=== PATIENT | male | born 1965 | race Caucasian/White ===

== ENCOUNTER 2016-08-18 15:39 | Inpatient (IN) | payer OTHER ==
[~2016-08-18] VITALS: Ht 172.7 cm; Wt 70.8 kg
[2016-08-18 15:40] VITALS: BP 143/80; PULSE 120; RESP 22; TEMP 101; O2SAT 96
[2016-08-18] MEDS ORDERED: PIPERACILLIN/TAZOBACTAM 3.375 GM/VIAL (ZOSYN) IV ONE ×2 (15:58→22:59)
[2016-08-18] MEDS ORDERED: MORPHINE 4 MG/ML INJ. SYRINGE IVP ONE (16:00)
[2016-08-18] MEDS ORDERED: PIPERACILLIN/TAZO 3.38 GM in NS 50 ML IV ONE (16:00)
[2016-08-18] MEDS ORDERED: ACETAMINOPHEN 500 MG TABLET PO ONE (16:00)
[2016-08-18] MEDS ORDERED: DIPHENHYDRAMINE INJ 50 MG/ML VIAL IVP ONE (16:00)
[2016-08-18] MEDS ORDERED: ONDANSETRON HCL 4 MG/2 ML VIAL IVP ONE (16:00)
[2016-08-18] MEDS ORDERED: NACL 0.9% 1,000 ML IV ONE (16:00)
[2016-08-18 16:13] LABS: INR 1.2 (0.80-1.20)
[2016-08-18 16:14] LABS: CALCIUM 8.4 mg/dL (8.4-11.0); CREATININE 1.01 mg/dL (0.55-1.30); POTASSIUM 3.4 mmol/L (3.5-5.1)
[2016-08-18 16:15] LABS: HEMATOCRIT 42.4 % (36-54); HEMOGLOBIN 14.6 g/dL (14.0-18.0); MEAN CORPUSCULAR HEMOGLOBIN 32 pg (27-31); MEAN CORPUSCULAR HGB CONC 35 % (32-36); MEAN CORPUSCULAR VOLUME 91 fL (79.0-98.0); PLATELET COUNT (AUTO) 295 K/uL (130-430); RED BLOOD CELL COUNT(AUTO) 4.66 MIL/uL (4.2-6.2); WHITE BLOOD COUNT (AUTO) 14.5 K/uL (4.8-10.8)
[2016-08-18 16:18] LABS: ALBUMIN 2.1 g/dL (3.4-4.8); TOTAL BILIRUBIN 0.5 mg/dL (0.0-1.0); TOTAL PROTEIN, SERUM 6.8 g/dL (6.4-8.3)
[2016-08-18 16:27] LABS: BAND % (MANUAL) 13 % (0-6); BASOPHILS % (MANUAL) 0 % (0-2); EOSINOPHILS % (MANUAL) 0 % (0-7); LYMPHOCYTES % (MANUAL) 4 % (20-46); MONOCYTES % (MANUAL) 1 % (0-11)
[2016-08-18] MEDS ORDERED: ALBUTEROL SULFATE 0.083% 2.5 MG/3 ML VIAL.NEB INH ONE (16:30)
[2016-08-18] MEDS ORDERED: POTASSIUM CHLORIDE 40 MEQ in D5W 250 ML IV ONE (16:45)
[2016-08-18] MEDS ORDERED: POTASSIUM CHLORIDE 20 MEQ TAB.PRT.SR PO ONE (16:45)
[2016-08-18] MEDS ORDERED: AZITHROMYCIN 500 MG in NS 250 ML IV SCH (17:45)
[2016-08-18] MEDS ORDERED: LEVOFLOXACIN 500 MG/D5W 100 ML IV SCH ×3 (17:45→23:00)
[2016-08-18] MEDS ORDERED: NACL 0.9% 1,000 ML IV SCH ×3 (17:45→21:10)
[2016-08-18 18:16] VITALS: BP 102/64; PULSE 85; RESP 20; TEMP 97.8; O2SAT 96
[2016-08-18 20:00] VITALS: BP 106/71; PULSE 88; RESP 19; TEMP 98.9; O2SAT 97
[2016-08-18] MEDS ORDERED: IPRATROPIUM/ALBUTEROL SULFATE 3 ML AMPUL.NEB INH PRN (21:15)
[2016-08-18] MEDS ORDERED: ONDANSETRON HCL 4 MG/2 ML VIAL IVP PRN (21:15)
[2016-08-18] MEDS ORDERED: ACETAMINOPHEN 325 MG TABLET PO PRN (21:15)
[2016-08-18] MEDS ORDERED: IPRATROPIUM/ALBUTEROL SULFATE 3 ML AMPUL.NEB INH SCH ×2 (22:00→22:15)
[2016-08-18] MEDS ORDERED: LEVOFLOXACIN 500 MG/D5W 100 ML IV ONE (22:58)
[2016-08-18] MEDS: IPRATROPIUM/ALBUTEROL SULFATE 3 ML AMPUL.NEB INH SCH (23:00)
[2016-08-18 23:04] LABS: BILIRUBIN,URINE NEGATIVE (NEGATIVE); BLOOD, URINE 1+ (NEGATIVE); CLARITY/URINE CLEAR (CLEAR); COLOR,URINE YELLOW (YELLOW); GLUCOSE,URINE NEGATIVE (NEGATIVE); KETONES,URINE NEGATIVE (NEGATIVE); LEUKOCYTE ESTERASE ,URINE NEGATIVE (NEGATIVE); NITRITE, URINE NEGATIVE (NEGATIVE); PROTEIN URINE 1+ (NEGATIVE); UROBILINOGEN,URINE 0.2 (0.2-1.0)
[2016-08-18 23:09] LABS: CALCIUM 8.4 mg/dL (8.4-11.0); CREATININE 1.28 mg/dL (0.55-1.30); POTASSIUM 4.4 mmol/L (3.5-5.1)
[2016-08-18 23:19] LABS: BACTERIA,URINE MANY /HPF (None Seen); RBC,URINE 0-3 /HPF (0-3)
[2016-08-18 23:20] LABS: MUCUS,URINE None Seen /LPF (None Seen)
[2016-08-18] MEDS ORDERED: 0.45% NACL 1,000 ML IV SCH (23:30)
[2016-08-19] VITALS (8 sets, daily range): BP systolic 107–133; BP diastolic 56–78; PULSE 80–100; RESP 16–24; TEMP 98.1–101.2; O2SAT 91–95
[2016-08-19] MEDS ORDERED: COMMUNICATION ORDER XX ONE
[2016-08-19] MEDS ORDERED: AZITHROMYCIN 500 MG in NS 250 ML IV SCH ×2
[2016-08-19] MEDS: PIPERACILLIN/TAZO 3.375/DEX-IS 50 ML IV SCH ×5 (00:49→23:42)
[2016-08-19] MEDS: IPRATROPIUM/ALBUTEROL SULFATE 3 ML AMPUL.NEB INH SCH ×4 (03:00→23:42)
[2016-08-19] MEDS ORDERED: ACETYLCYSTEINE 10% 4 ML VIAL (RT) INH SCH (07:00)
[2016-08-19 07:49] LABS: BASOPHILS # (AUTO) 0.1 K/uL (0.0-0.2); BASOPHILS % (AUTO) 0.8 % (0.0-2.0); EOSINOPHILS % (AUTO) 0.1 % (0.0-4.0); HEMATOCRIT 38.6 % (36-54); HEMOGLOBIN 13.4 g/dL (14.0-18.0); LYMPHOCYTES # (AUTO) 0.5 K/uL (1.0-5.5); LYMPHOCYTES % (AUTO) 3.7 % (20.5-51.5); MEAN CORPUSCULAR HEMOGLOBIN 32 pg (27-31); MEAN CORPUSCULAR HGB CONC 35 % (32-36); MEAN CORPUSCULAR VOLUME 92 fL (79.0-98.0); MONOCYTES # (AUTO) 0.2 K/uL (0.0-1.0); MONOCYTES % (AUTO) 1.7 % (1.7-9.3); NEUTROPHILS # (AUTO) 11.8 K/uL (1.8-7.7); NEUTROPHILS % (AUTO) 93.7 % (40.0-70.0); PLATELET COUNT (AUTO) 317 K/uL (130-430); RED BLOOD CELL COUNT(AUTO) 4.21 MIL/uL (4.2-6.2); RED CELL DISTRIBUTION WIDTH 12.2 % (9.0-15.0); WHITE BLOOD COUNT (AUTO) 12.6 K/uL (4.8-10.8)
[2016-08-19 07:51] LABS: ALBUMIN 1.8 g/dL (3.4-4.8); CALCIUM 8.2 mg/dL (8.4-11.0); CREATININE 1.25 mg/dL (0.55-1.30); PHOSPHORUS 1.8 mg/dL (2.7-4.5); POTASSIUM 4.1 mmol/L (3.5-5.1); TOTAL BILIRUBIN 0.5 mg/dL (0.0-1.0); TOTAL PROTEIN, SERUM 6.4 g/dL (6.4-8.3)
[2016-08-19] MEDS ORDERED: LORazepam 2 MG/ML VIAL IM PRN (08:00)
[2016-08-19] MEDS ORDERED: IPRATROPIUM/ALBUTEROL SULFATE 3 ML AMPUL.NEB INH PRN (08:15)
[2016-08-19] MEDS ORDERED: ONDANSETRON HCL 4 MG/2 ML VIAL IVP PRN (08:15)
[2016-08-19] MEDS: ACETAMINOPHEN 325 MG TABLET PO PRN ×2 (08:49→17:16)
[2016-08-19] MEDS: ENOXAPARIN SODIUM 40 MG/0.4 ML SYRINGE SUBCUT SCH (08:49)
[2016-08-19] MEDS ORDERED: ENOXAPARIN SODIUM 40 MG/0.4 ML SYRINGE SUBCUT SCH (09:00)
[2016-08-19] MEDS: NICOTINE 7 MG/24 HR PATCH.TD24 TD SCH (09:00)
[2016-08-19] MEDS: LACTOBACILLUS RHAMNOSUS GG 1 CAP CAPSULE PO SCH ×2 (13:03→20:48)
[2016-08-19] MEDS: NACL 0.9% 1,000 ML IV SCH (16:04)
[2016-08-19] MEDS: ACETYLCYSTEINE 10% 4 ML VIAL (RT) INH SCH (16:22)
[2016-08-19] MEDS ORDERED: THIAMINE HCL 100 MG TABLET PO ONE (17:00)
[2016-08-19] MEDS ORDERED: FOLIC ACID 1 MG TABLET PO ONE (17:00)
[2016-08-19] MEDS ORDERED: MULTIVITAMINS TAB 1 TABLET PO ONE (17:00)
[2016-08-19] MEDS: THIAMINE HCL 100 MG TABLET PO SCH (17:06)
[2016-08-19] MEDS: LEVOFLOXACIN 500 MG/D5W 100 ML IV SCH (20:47)
[2016-08-20 01:12] VITALS: BP 120/69; PULSE 89; RESP 19; TEMP 97.9; O2SAT 100
[2016-08-20] MEDS: IPRATROPIUM/ALBUTEROL SULFATE 3 ML AMPUL.NEB INH SCH ×5 (03:00→23:00)
[2016-08-20 03:36] VITALS: BP 113/62; PULSE 91; RESP 18; TEMP 97.9; O2SAT 93
[2016-08-20] MEDS: NACL 0.9% 1,000 ML IV SCH ×3 (05:56→22:18)
[2016-08-20] MEDS: PIPERACILLIN/TAZO 3.375/DEX-IS 50 ML IV SCH ×3 (05:57→17:31)
[2016-08-20] MEDS ORDERED: COMMUNICATION ORDER XX ONE (07:30)
[2016-08-20 08:00] VITALS: BP 116/75; PULSE 86; RESP 20; TEMP 98.5; O2SAT 93
[2016-08-20 08:54] LABS: BASOPHILS # (AUTO) 0.2 K/uL (0.0-0.2); BASOPHILS % (AUTO) 1.5 % (0.0-2.0); EOSINOPHILS # (AUTO) 0.1 K/uL (0.0-0.4); EOSINOPHILS % (AUTO) 0.8 % (0.0-4.0); HEMATOCRIT 33.6 % (36-54); HEMOGLOBIN 11.6 g/dL (14.0-18.0); LYMPHOCYTES # (AUTO) 0.7 K/uL (1.0-5.5); LYMPHOCYTES % (AUTO) 5.5 % (20.5-51.5); MEAN CORPUSCULAR HEMOGLOBIN 31 pg (27-31); MEAN CORPUSCULAR HGB CONC 35 % (32-36); MEAN CORPUSCULAR VOLUME 91 fL (79.0-98.0); MONOCYTES # (AUTO) 0.4 K/uL (0.0-1.0); MONOCYTES % (AUTO) 2.9 % (1.7-9.3); NEUTROPHILS # (AUTO) 10.8 K/uL (1.8-7.7); NEUTROPHILS % (AUTO) 89.3 % (40.0-70.0); PLATELET COUNT (AUTO) 341 K/uL (130-430); RED BLOOD CELL COUNT(AUTO) 3.71 MIL/uL (4.2-6.2); RED CELL DISTRIBUTION WIDTH 12.3 % (9.0-15.0); WHITE BLOOD COUNT (AUTO) 12.2 K/uL (4.8-10.8)
[2016-08-20] MEDS: NICOTINE 7 MG/24 HR PATCH.TD24 TD SCH (09:00)
[2016-08-20 09:16] LABS: ALBUMIN 1.5 g/dL (3.4-4.8); CALCIUM 7.9 mg/dL (8.4-11.0); CREATININE 0.88 mg/dL (0.55-1.30); POTASSIUM 3.7 mmol/L (3.5-5.1); TOTAL BILIRUBIN 0.3 mg/dL (0.0-1.0); TOTAL PROTEIN, SERUM 5.4 g/dL (6.4-8.3)
[2016-08-20] MEDS: LACTOBACILLUS RHAMNOSUS GG 1 CAP CAPSULE PO SCH ×2 (09:18→22:17)
[2016-08-20] MEDS: ENOXAPARIN SODIUM 40 MG/0.4 ML SYRINGE SUBCUT SCH (09:18)
[2016-08-20] MEDS: FOLIC ACID 1 MG TABLET PO SCH (09:19)
[2016-08-20] MEDS: THIAMINE HCL 100 MG TABLET PO SCH (09:19)
[2016-08-20] MEDS: MULTIVITAMINS TAB 1 TABLET PO SCH (09:19)
[2016-08-20 12:19] VITALS: BP 116/63; PULSE 85; RESP 18; TEMP 98.1; O2SAT 95
[2016-08-20 16:31] VITALS: BP 120/66; PULSE 80; RESP 17; TEMP 99; O2SAT 94
[2016-08-20 19:36] VITALS: BP 119/70; PULSE 88; RESP 20; TEMP 97.2; O2SAT 92
[2016-08-20] MEDS: LEVOFLOXACIN 500 MG/D5W 100 ML IV SCH (22:18)
[2016-08-21] VITALS (7 sets, daily range): BP systolic 124–133; BP diastolic 71–79; PULSE 66–84; RESP 16–18; TEMP 97.7–98.7; O2SAT 92–95
[2016-08-21] MEDS: PIPERACILLIN/TAZO 3.375/DEX-IS 50 ML IV SCH ×5 (00:38→23:43)
[2016-08-21] MEDS: IPRATROPIUM/ALBUTEROL SULFATE 3 ML AMPUL.NEB INH SCH ×3 (03:00→20:13)
[2016-08-21 07:48] LABS: BASOPHILS # (AUTO) 0.1 K/uL (0.0-0.2); BASOPHILS % (AUTO) 0.6 % (0.0-2.0); EOSINOPHILS # (AUTO) 0.2 K/uL (0.0-0.4); EOSINOPHILS % (AUTO) 2.2 % (0.0-4.0); HEMATOCRIT 34.9 % (36-54); HEMOGLOBIN 11.8 g/dL (14.0-18.0); LYMPHOCYTES # (AUTO) 0.8 K/uL (1.0-5.5); LYMPHOCYTES % (AUTO) 6.8 % (20.5-51.5); MEAN CORPUSCULAR HEMOGLOBIN 31 pg (27-31); MEAN CORPUSCULAR HGB CONC 34 % (32-36); MEAN CORPUSCULAR VOLUME 92 fL (79.0-98.0); MONOCYTES # (AUTO) 0.6 K/uL (0.0-1.0); NEUTROPHILS # (AUTO) 9.5 K/uL (1.8-7.7); NEUTROPHILS % (AUTO) 85.4 % (40.0-70.0); PLATELET COUNT (AUTO) 352 K/uL (130-430); RED BLOOD CELL COUNT(AUTO) 3.79 MIL/uL (4.2-6.2); RED CELL DISTRIBUTION WIDTH 12.5 % (9.0-15.0); WHITE BLOOD COUNT (AUTO) 11.2 K/uL (4.8-10.8)
[2016-08-21 07:53] LABS: ALBUMIN 1.5 g/dL (3.4-4.8); CALCIUM 7.8 mg/dL (8.4-11.0); CREATININE 0.82 mg/dL (0.55-1.30); POTASSIUM 3.4 mmol/L (3.5-5.1); TOTAL BILIRUBIN 0.3 mg/dL (0.0-1.0); TOTAL PROTEIN, SERUM 5.4 g/dL (6.4-8.3)
[2016-08-21] MEDS: THIAMINE HCL 100 MG TABLET PO SCH (08:45)
[2016-08-21] MEDS: FOLIC ACID 1 MG TABLET PO SCH (08:45)
[2016-08-21] MEDS: MULTIVITAMINS TAB 1 TABLET PO SCH (08:45)
[2016-08-21] MEDS: LACTOBACILLUS RHAMNOSUS GG 1 CAP CAPSULE PO SCH ×2 (08:45→21:11)
[2016-08-21] MEDS: ENOXAPARIN SODIUM 40 MG/0.4 ML SYRINGE SUBCUT SCH (08:47)
[2016-08-21] MEDS: NICOTINE 7 MG/24 HR PATCH.TD24 TD SCH (08:48)
[2016-08-21] MEDS ORDERED: POTASSIUM CHLORIDE 20 MEQ TAB.PRT.SR PO ONE (09:45)
[2016-08-21] MEDS ORDERED: LOPERAMIDE HCL 2 MG CAPSULE PO ONE (09:45)
[2016-08-21] MEDS: NACL 0.9% 1,000 ML IV SCH (11:39)
[2016-08-21] MEDS: LEVOFLOXACIN 500 MG/D5W 100 ML IV SCH (20:32)
[2016-08-22] MEDS: NACL 0.9% 1,000 ML IV SCH ×4 (02:37→19:54)
[2016-08-22 04:45] VITALS: BP 128/77; PULSE 66; RESP 18; TEMP 98; O2SAT 95
[2016-08-22] MEDS: PIPERACILLIN/TAZO 3.375/DEX-IS 50 ML IV SCH ×3 (05:23→17:21)
[2016-08-22 06:59] LABS: HEMATOCRIT 35.1 % (36-54); HEMOGLOBIN 12.1 g/dL (14.0-18.0); MEAN CORPUSCULAR HEMOGLOBIN 32 pg (27-31); MEAN CORPUSCULAR HGB CONC 34 % (32-36); MEAN CORPUSCULAR VOLUME 93 fL (79.0-98.0); PLATELET COUNT (AUTO) 363 K/uL (130-430); RED BLOOD CELL COUNT(AUTO) 3.79 MIL/uL (4.2-6.2); RED CELL DISTRIBUTION WIDTH 12.4 % (9.0-15.0); WHITE BLOOD COUNT (AUTO) 11.8 K/uL (4.8-10.8)
[2016-08-22 07:18] LABS: ALBUMIN 1.5 g/dL (3.4-4.8); CALCIUM 7.8 mg/dL (8.4-11.0); CREATININE 0.74 mg/dL (0.55-1.30); POTASSIUM 3.8 mmol/L (3.5-5.1); TOTAL BILIRUBIN 0.5 mg/dL (0.0-1.0); TOTAL PROTEIN, SERUM 5.4 g/dL (6.4-8.3)
[2016-08-22] MEDS: IPRATROPIUM/ALBUTEROL SULFATE 3 ML AMPUL.NEB INH SCH ×3 (08:38→20:39)
[2016-08-22 08:40] VITALS: BP 128/77; PULSE 71
[2016-08-22] MEDS: NICOTINE 7 MG/24 HR PATCH.TD24 TD SCH (08:54)
[2016-08-22] MEDS: FOLIC ACID 1 MG TABLET PO SCH (08:54)
[2016-08-22] MEDS: MULTIVITAMINS TAB 1 TABLET PO SCH (08:54)
[2016-08-22] MEDS: THIAMINE HCL 100 MG TABLET PO SCH (08:54)
[2016-08-22] MEDS: ENOXAPARIN SODIUM 40 MG/0.4 ML SYRINGE SUBCUT SCH (08:55)
[2016-08-22] MEDS: LACTOBACILLUS RHAMNOSUS GG 1 CAP CAPSULE PO SCH ×2 (08:55→21:46)
[2016-08-22 09:23] LABS: ATYPICAL LYMPHOCYTES % 0 % (0-0); BAND % (MANUAL) 3 % (0-6); BASOPHILS % (MANUAL) 0 % (0-2); EOSINOPHILS % (MANUAL) 3 % (0-7); LYMPHOCYTES % (MANUAL) 12 % (20-46); MONOCYTES % (MANUAL) 8 % (0-11)
[2016-08-22] MEDS ORDERED: HYDROCORTISONE ACETATE 1 SUPP (ANUSOL HC) RC ONE (10:30)
[2016-08-22] MEDS ORDERED: IOHEXOL 100 ML IV ONE (11:06)
[2016-08-22 11:31] VITALS: BP 133/76; PULSE 74; RESP 17; TEMP 98.9; O2SAT 91
[2016-08-22 15:38] VITALS: BP 134/74; PULSE 80; RESP 19; TEMP 98.4; O2SAT 91
[2016-08-22 19:50] VITALS: BP 140/72; PULSE 78; RESP 18; TEMP 98.8; O2SAT 91
[2016-08-22 20:00] VITALS: BP 140/72; PULSE 80; RESP 18; TEMP 97.8; O2SAT 91
[2016-08-22] MEDS: HYDROCORTISONE ACETATE 1 SUPP (ANUSOL HC) RC SCH (21:00)
[2016-08-22] MEDS: LEVOFLOXACIN 500 MG/D5W 100 ML IV SCH (21:43)
[2016-08-23] VITALS: BP 123/60; PULSE 88; RESP 17; TEMP 98.4; O2SAT 93
[2016-08-23] MEDS: PIPERACILLIN/TAZO 3.375/DEX-IS 50 ML IV SCH ×5 (00:31→23:18)
[2016-08-23 04:00] VITALS: BP 142/79; PULSE 71; RESP 17; TEMP 97.7; O2SAT 90
[2016-08-23 07:00] VITALS: BP 130/74; PULSE 79; RESP 18; TEMP 97.9; O2SAT 88
[2016-08-23] MEDS: IPRATROPIUM/ALBUTEROL SULFATE 3 ML AMPUL.NEB INH SCH ×2 (07:00→17:26)
[2016-08-23 08:16] LABS: BASOPHILS # (AUTO) 0.1 K/uL (0.0-0.2); BASOPHILS % (AUTO) 0.4 % (0.0-2.0); EOSINOPHILS # (AUTO) 0.3 K/uL (0.0-0.4); EOSINOPHILS % (AUTO) 2.5 % (0.0-4.0); HEMATOCRIT 35.8 % (36-54); HEMOGLOBIN 12.4 g/dL (14.0-18.0); LYMPHOCYTES % (AUTO) 7.7 % (20.5-51.5); MEAN CORPUSCULAR HEMOGLOBIN 32 pg (27-31); MEAN CORPUSCULAR HGB CONC 35 % (32-36); MEAN CORPUSCULAR VOLUME 91 fL (79.0-98.0); MONOCYTES # (AUTO) 1.2 K/uL (0.0-1.0); MONOCYTES % (AUTO) 8.6 % (1.7-9.3); NEUTROPHILS % (AUTO) 80.8 % (40.0-70.0); PLATELET COUNT (AUTO) 344 K/uL (130-430); RED BLOOD CELL COUNT(AUTO) 3.93 MIL/uL (4.2-6.2); RED CELL DISTRIBUTION WIDTH 11.9 % (9.0-15.0); WHITE BLOOD COUNT (AUTO) 13.6 K/uL (4.8-10.8)
[2016-08-23 08:54] LABS: ALBUMIN 1.7 g/dL (3.4-4.8); CALCIUM 7.8 mg/dL (8.4-11.0); CREATININE 0.8 mg/dL (0.55-1.30); POTASSIUM 3.6 mmol/L (3.5-5.1); TOTAL BILIRUBIN 0.5 mg/dL (0.0-1.0); TOTAL PROTEIN, SERUM 5.6 g/dL (6.4-8.3)
[2016-08-23] MEDS: HYDROCORTISONE ACETATE 1 SUPP (ANUSOL HC) RC SCH ×2 (09:00→21:00)
[2016-08-23] MEDS: NICOTINE 7 MG/24 HR PATCH.TD24 TD SCH (09:00)
[2016-08-23] MEDS: THIAMINE HCL 100 MG TABLET PO SCH (09:41)
[2016-08-23] MEDS: MULTIVITAMINS TAB 1 TABLET PO SCH (09:41)
[2016-08-23] MEDS: LACTOBACILLUS RHAMNOSUS GG 1 CAP CAPSULE PO SCH ×2 (09:41→21:12)
[2016-08-23] MEDS: ENOXAPARIN SODIUM 40 MG/0.4 ML SYRINGE SUBCUT SCH (09:41)
[2016-08-23] MEDS: FOLIC ACID 1 MG TABLET PO SCH (09:41)
[2016-08-23 12:00] VITALS: BP 140/79; PULSE 78; RESP 16; TEMP 97.2; O2SAT 97
[2016-08-23 16:44] VITALS: BP 139/80; PULSE 74; RESP 16; TEMP 97.8; O2SAT 97
[2016-08-23 20:22] VITALS: BP 112/68; PULSE 85; RESP 16; TEMP 99.8; O2SAT 92
[2016-08-23] MEDS: LEVOFLOXACIN 500 MG/D5W 100 ML IV SCH (21:15)
[2016-08-24 00:06] VITALS: BP 134/81; PULSE 78; RESP 20; TEMP 100.9; O2SAT 93
[2016-08-24] MEDS: NACL 0.9% 1,000 ML IV SCH ×3 (02:15→21:33)
[2016-08-24 04:02] VITALS: BP 142/85; PULSE 70; RESP 20; TEMP 99.2; O2SAT 93
[2016-08-24] MEDS: PIPERACILLIN/TAZO 3.375/DEX-IS 50 ML IV SCH ×4 (05:19→23:23)
[2016-08-24 07:20] LABS: BASOPHILS % (AUTO) 0.1 % (0.0-2.0); EOSINOPHILS # (AUTO) 0.3 K/uL (0.0-0.4); HEMATOCRIT 36.8 % (36-54); HEMOGLOBIN 12.8 g/dL (14.0-18.0); LYMPHOCYTES # (AUTO) 1.4 K/uL (1.0-5.5); LYMPHOCYTES % (AUTO) 12.5 % (20.5-51.5); MEAN CORPUSCULAR HEMOGLOBIN 32 pg (27-31); MEAN CORPUSCULAR HGB CONC 35 % (32-36); MEAN CORPUSCULAR VOLUME 92 fL (79.0-98.0); MONOCYTES # (AUTO) 0.8 K/uL (0.0-1.0); MONOCYTES % (AUTO) 6.7 % (1.7-9.3); NEUTROPHILS % (AUTO) 77.7 % (40.0-70.0); PLATELET COUNT (AUTO) 388 K/uL (130-430); RED BLOOD CELL COUNT(AUTO) 3.99 MIL/uL (4.2-6.2); RED CELL DISTRIBUTION WIDTH 12.3 % (9.0-15.0); WHITE BLOOD COUNT (AUTO) 11.5 K/uL (4.8-10.8)
[2016-08-24 07:23] LABS: ALBUMIN 1.8 g/dL (3.4-4.8); CREATININE 0.77 mg/dL (0.55-1.30); POTASSIUM 3.9 mmol/L (3.5-5.1); TOTAL BILIRUBIN 0.5 mg/dL (0.0-1.0); TOTAL PROTEIN, SERUM 5.9 g/dL (6.4-8.3)
[2016-08-24] MEDS: IPRATROPIUM/ALBUTEROL SULFATE 3 ML AMPUL.NEB INH SCH ×2 (07:34→15:15)
[2016-08-24 08:07] VITALS: BP 139/73; PULSE 83; RESP 18; TEMP 98.1; O2SAT 95
[2016-08-24] MEDS: ENOXAPARIN SODIUM 40 MG/0.4 ML SYRINGE SUBCUT SCH (10:18)
[2016-08-24] MEDS: FOLIC ACID 1 MG TABLET PO SCH (10:19)
[2016-08-24] MEDS: MULTIVITAMINS TAB 1 TABLET PO SCH (10:19)
[2016-08-24] MEDS: HYDROCORTISONE ACETATE 1 SUPP (ANUSOL HC) RC SCH ×2 (10:19→21:00)
[2016-08-24] MEDS: THIAMINE HCL 100 MG TABLET PO SCH (10:19)
[2016-08-24] MEDS: NICOTINE 7 MG/24 HR PATCH.TD24 TD SCH (10:19)
[2016-08-24 12:48] VITALS: BP 132/75; PULSE 81; RESP 16; TEMP 97; O2SAT 93
[2016-08-24 16:13] VITALS: BP 125/82; PULSE 88; RESP 19; TEMP 98.6; O2SAT 92
[2016-08-24] MEDS ORDERED: MAG-AL HYDROX/SIMETH 30 ML UDC PO PRN (20:00)
[2016-08-24 20:17] VITALS: BP 133/77; PULSE 85; RESP 17; TEMP 99.8; O2SAT 93
[2016-08-24] MEDS: LEVOFLOXACIN 500 MG/D5W 100 ML IV SCH (21:29)
[2016-08-25] VITALS: BP 128/72; PULSE 82; RESP 16; TEMP 99.2; O2SAT 92
[2016-08-25 04:00] VITALS: BP 138/75; PULSE 85; RESP 16; TEMP 98.8; O2SAT 92
[2016-08-25] MEDS: PIPERACILLIN/TAZO 3.375/DEX-IS 50 ML IV SCH ×2 (05:45→11:09)
[2016-08-25 07:23] LABS: BASOPHILS % (AUTO) 0.2 % (0.0-2.0); EOSINOPHILS # (AUTO) 0.4 K/uL (0.0-0.4); EOSINOPHILS % (AUTO) 3.5 % (0.0-4.0); HEMATOCRIT 36.7 % (36-54); LYMPHOCYTES # (AUTO) 1.7 K/uL (1.0-5.5); LYMPHOCYTES % (AUTO) 15.9 % (20.5-51.5); MEAN CORPUSCULAR HEMOGLOBIN 34 pg (27-31); MEAN CORPUSCULAR HGB CONC 36 % (32-36); MEAN CORPUSCULAR VOLUME 95 fL (79.0-98.0); MONOCYTES # (AUTO) 0.8 K/uL (0.0-1.0); MONOCYTES % (AUTO) 7.4 % (1.7-9.3); NEUTROPHILS # (AUTO) 7.5 K/uL (1.8-7.7); PLATELET COUNT (AUTO) 467 K/uL (130-430); RED BLOOD CELL COUNT(AUTO) 3.87 MIL/uL (4.2-6.2); RED CELL DISTRIBUTION WIDTH 12.2 % (9.0-15.0); WHITE BLOOD COUNT (AUTO) 10.4 K/uL (4.8-10.8)
[2016-08-25 07:37] VITALS: BP 134/73; PULSE 74
[2016-08-25] MEDS: IPRATROPIUM/ALBUTEROL SULFATE 3 ML AMPUL.NEB INH SCH (07:37)
[2016-08-25 07:39] LABS: ALBUMIN 1.9 g/dL (3.4-4.8); CREATININE 0.68 mg/dL (0.55-1.30); POTASSIUM 4.1 mmol/L (3.5-5.1); TOTAL BILIRUBIN 0.4 mg/dL (0.0-1.0); TOTAL PROTEIN, SERUM 6.2 g/dL (6.4-8.3)
[2016-08-25 08:06] VITALS: BP 134/73; PULSE 85; RESP 18; TEMP 98.2; O2SAT 92
[2016-08-25 08:53] VITALS: BP 134/72; PULSE 85; RESP 18; TEMP 98.2; O2SAT 92
[2016-08-25] MEDS: HYDROCORTISONE ACETATE 1 SUPP (ANUSOL HC) RC SCH (09:00)
[2016-08-25] MEDS: NICOTINE 7 MG/24 HR PATCH.TD24 TD SCH (09:38)
[2016-08-25] MEDS: ENOXAPARIN SODIUM 40 MG/0.4 ML SYRINGE SUBCUT SCH (09:38)
[2016-08-25] MEDS: THIAMINE HCL 100 MG TABLET PO SCH (09:38)
[2016-08-25] MEDS: FOLIC ACID 1 MG TABLET PO SCH (09:38)
[2016-08-25] MEDS: MULTIVITAMINS TAB 1 TABLET PO SCH (09:38)
[2016-08-25] MEDS ORDERED: AMOX-426 PO (10:33)
[2016-08-25 11:07] LABS: HEPATITIS A AB, IgM Negative (Negative); HEPATITIS B CORE AB, IgM Negative (Negative); HEPATITIS B SURFACE AG Negative (Negative)
[2016-08-25 12:04] VITALS: BP 125/76; PULSE 94; RESP 16; TEMP 98; O2SAT 95
== END 2016-08-25 14:35 | disposition home or self-care (01) | DRG 194 ==
LOC: SED 15:39 → STU 17:42 → SED 17:50 → SMU 08-21 09:56
PROVIDERS: ADMIT Internal Medicine; ATTEND Internal Medicine
DX: J18.9 Pneumonia, unspecified organism (principal); E87.1 Hypo-osmolality and hyponatremia; F17.210 Nicotine dependence, cigarettes, uncomplicated; E86.0 Dehydration; K75.9 Inflammatory liver disease, unspecified; M51.36 Other intervertebral disc degeneration, lumbar region
CPT/HCPCS: 36415; 71010; 71020-TC; 71250-TC; 71260-TC; 80048; 80053; 81000-TC; 82962; 83605; 83690-TC; 83735-TC; 84100-TC; 85007; 85025; 85027; 85610-TC; 86480; 86705; 86709; 86710; 87040-TC; 87045-TC; 87046; 87086; 87230-TC; 87340; 87449; 93005; 94640; 94760; 96365; 96375; 97116-GP; 99285; J0456; J1200; J1650; J1956; J2270; J2405; J2543; J3480; J7030; J7050; J7060; Q9967